=== PATIENT | female | born 1955 | race Caucasian/White ===

== ENCOUNTER 2018-03-29 07:43 | Day surgery (SDC) | payer OTHER ==
[2018-03-28 10:48] VITALS: BMI 32.5
[2018-03-29] MEDS ORDERED: Oxymetazoline HCl 0.05% ( 15 ML ) ONE (09:02)
[2018-03-29] MEDS ORDERED: Lidocaine 1% w/Epinephrine 1:100K 30 ML VIAL ONE (09:50)
[2018-03-29] MEDS ORDERED: Fentanyl 100 MCG/2 ML VIAL ONE (09:56)
[2018-03-29] MEDS ORDERED: Scopolamine 1.5 mg/72 hour Patch ONE (10:15)
[2018-03-29] MEDS ORDERED: Bacitracin Zinc Ointment 30 gm TUBE ONE (10:20)
--- NOTE | 2018-03-29 16:59 | OP ---
PREOPERATIVE DIAGNOSES: 1. Nasal septal deviation. 2. Bilateral inferior turbinate hypertrophy. 3. Nasal obstruction. POSTOPERATIVE DIAGNOSES: 1. Nasal septal deviation. 2. Bilateral inferior turbinate hypertrophy. 3. Nasal obstruction. PROCEDURES: 1. Nasal septoplasty. 2. Bilateral inferior turbinate submucosal resection. SURGEON: Dr. Romario Cohen. ESTIMATED BLOOD LOSS: 20 mL. COMPLICATIONS: None. ANESTHESIA: GETA. PROCEDURE IN DETAIL: Patient was taken to the operating room and placed supine on the table. General endotracheal anesthesia was obtained by the Anesthesia staff. Tube was secured in the left lower lip. Patient was then placed in the beach chair position, and Afrin pledgets were placed in the nasal cavity. Injections of 1% lidocaine with 1:100,000 epinephrine were made into the nasal septum as well as the inferior turbinates. Patient was then prepped and draped in standard surgical fashion for nasal surgery. Following this, the Afrin pledgets were removed. A [place] incision was made on the left nasal septum. Submucoperichondrial dissection was performed. The deviated portions of the septum included portions of the cartilage and the bony septum. These isolated areas were removed using three cutting rongeurs. There was noted to be a large dorsal and caudal strut, left intact for support of the nose. The mucoperichondrial flaps were then reapproximated using a 4-0 gut stitch. Any straight pieces of cartilage were crushed prior to this and placed between the mucoperichondrial flaps. Following this, the inferior turbinates were then punctured with a submucosal coblation wand, and submucosal coblations were performed of multiple areas of the inferior portion of the anterior inferior turbinate. Please note that the submucosal microdebrider was used to submucosally resect the anterior and inferi or portions of the inferior turbinate bilaterally. The patient tolerated the procedure well.
--- NOTE | 2018-04-01 17:51 | EKG ---
Test Reason : PREOP Blood Pressure : / mmHG Vent. Rate : 067 BPM Atrial Rate : 067 BPM P-R Int : 156 ms QRS Dur : 090 ms QT Int : 380 ms P-R-T Axes : 020 055 050 degrees QTc Int : 401 ms Normal sinus rhythm with sinus arrhythmia Normal ECG When compared with ECG of 30-MAR-2016 00:03, No significant change was found Confirmed by OMAYRA HAYS (2) on 04/01/2018 5:51:33 PM Referred By: VERNELL Confirmed By:OMAYRA HAYS
== END 2018-03-29 12:10 | disposition home or self-care (01) ==
LOC: SDC 07:43
PROVIDERS: ATTEND Otolaryngology Plastic Surgery within the Head & Neck
PROC: 09SM0ZZ Reposition Nasal Septum, Open Approach (ICD-10-PCS; principal; 2018-03-29)
PROC: 09TL0ZZ Resection of Nasal Turbinate, Open Approach (ICD-10-PCS; principal; 2018-03-29)
DX: J34.2 Deviated nasal septum (principal); J34.3 Hypertrophy of nasal turbinates; J32.9 Chronic sinusitis, unspecified; J34.89 Other specified disorders of nose and nasal sinuses; E78.00 Pure hypercholesterolemia, unspecified; E03.9 Hypothyroidism, unspecified; H69.80 Other specified disorders of Eustachian tube, unspecified ear; Z88.2 Allergy status to sulfonamides; Z91.040 Latex allergy status; Z79.84 Long term (current) use of oral hypoglycemic drugs; Z79.899 Other long term (current) drug therapy
CPT/HCPCS: 36415; 85014; 93005; 93010; J2001; J3010

== ENCOUNTER 2018-09-26 09:06 | Outpatient (CLI) | payer OTHER ==
--- NOTE | 2018-09-26 09:56 | ULT ---
HEPATIC ULTRASOUND: History: Hepatomegaly. FINDINGS: Real-time imaging of the upper abdomen was performed. This shows a normal appearing gallbladder. The common duct is 6 mm. Liver parenchyma shows no focal mass. It measures approximately 17 cm in length. The spleen measures 10.5 cm. DOPPLER EVALUATION WITH SPECTRAL ANALYSIS: Normal flow pattern is shown within the liver. IMPRESSION: Unremarkable hepatic ultrasound. POS: TPC
== END 2018-09-26 09:07 | disposition home or self-care (01) ==
LOC: BICULT 09:06
PROVIDERS: ATTEND Internal Medicine
DX: Z12.31 Encounter for screening mammogram for malignant neoplasm of breast (principal); R16.0 Hepatomegaly, not elsewhere classified; R92.1 Mammographic calcification found on diagnostic imaging of breast
CPT/HCPCS: 76705; 77063; 77067

== ENCOUNTER 2019-04-05 13:28 | Emergency (ER) | payer OTHER ==
[2019-04-05] MEDS ORDERED: Famotidine 20 MG TAB ONE (14:03)
[2019-04-05 14:29] LABS: #Basophils 0.1 thou/uL (0.0-0.2); #Eosinphils 0.1 thou/uL (0.0-0.7); #Lymphocytes 1.5 thou/uL (1.20-3.40); #Monocytes 0.6 thou/uL (0.11-0.59); #Neutrophils 10.7 thou/uL (1.40-6.50); %Basophils 0.5 % (0.0-1.0); %Eosinophils 0.5 % (0.0-10.0); %Lymphocytes 11.3 % (21.0-51.0); %Monocytes 4.7 % (0.0-10.0); Hemoglobin 13.3 g/dL (12.0-16.0); Mean Corpuscular HGB CONC 33.9 g/dL (32.0-36.0); Mean Corpuscular Hemoglobin 31.1 pg (27.0-31.0); Mean Corpuscular Volume 91.5 fL (78.0-98.0); Platelet Count 287 thou/uL (130-400); Red Blood Cell (RBC) Count 4.29 mill/uL (4.20-5.40); White Blood Cell (WBC) Count 12.9 thou/uL (4.8-10.8)
[2019-04-05 14:46] LABS: ALT (SGPT) 34 U/L (8-55); AST (SGOT) 32 U/L (5-34); Albumin 4.2 g/dL (3.4-4.8); Alkaline Phosphatase 89 U/L (40-150); Anion Gap 14 mmol/L (10-20); BUN (Urea Nitrogen) 14 mg/dL (9.8-20.1); Bilirubin, Total 0.5 mg/dL (0.2-1.2); Calc. Creatinine Clearance 0 mL/min (70-130); Calcium 9.2 mg/dL (7.8-10.44); Carbon Dioxide 27 mmol/L (23-31); Chloride 103 mmol/L (98-107); Estimated GFR-MDRD 85; Glucose 152 mg/dL (80-115); Protein, Total 7.2 g/dL (6.0-8.3); Sodium 140 mmol/L (136-145)
== END 2019-04-05 15:16 | disposition home or self-care (01) ==
LOC: SCSER 13:28
DX: K29.70 Gastritis, unspecified, without bleeding (principal); E11.9 Type 2 diabetes mellitus without complications
CPT/HCPCS: 80053; 84484; 85025; 93005

== ENCOUNTER 2019-06-18 22:55 | Emergency (ER) | payer OTHER ==
--- NOTE | 2019-06-18 23:24 | RAD ---
XR Shoulder Rt 3 View STANDARD History: Injury. Shoulder pain Comparison: None. Findings: Ribs are intact. No acute displaced fracture or malalignment. Mild enthesopathic changes of the deltoid upon the acromion. Small glenoid osteophytes. Impression: No acute fracture or malalignment.
== END 2019-06-18 23:35 | disposition home or self-care (01) ==
LOC: SCSER 22:55
DX: S40.011A Contusion of right shoulder, initial encounter (principal); S80.212A Abrasion, left knee, initial encounter; E03.9 Hypothyroidism, unspecified; E11.9 Type 2 diabetes mellitus without complications; Z79.899 Other long term (current) drug therapy; Z79.84 Long term (current) use of oral hypoglycemic drugs; W01.0XXA Fall on same level from slipping, tripping and stumbling without subsequent striking against object, initial encounter